=== PATIENT | female | born 1960 | race Caucasian/White ===

== ENCOUNTER 2020-09-08 13:05 | Outpatient (REF) | payer OTHER, SELFPAY | END 2020-09-08 13:06 | disposition home or self-care (01) | LOC: HO.LAB 13:05 | PROVIDERS: PCP Internal Medicine; Visit Provider Internal Medicine | DX: Z20.822 Contact with and (suspected) exposure to COVID-19 (principal) | CPT/HCPCS: 36415; C9803; U0003 ==

== ENCOUNTER 2021-01-27 09:18 | Outpatient (REF) | payer OTHER, SELFPAY ==
--- NOTE | ~2021-01-27 | MM_ITS ---
EXAMINATION: MM SCREENING DIGITAL BREAST TOMOSYNTHESIS, BILATERAL CLINICAL INFORMATION: Screening. Asymptomatic. The lifetime risk of breast cancer based on the Tyrer-Cuzick Model is 7%. COMPARISON: Mammography: 02/24/2017, 02/16/2017, 05/08/2014, targeted left breast ultrasound 02/24/2017. TECHNIQUE: Digital breast tomosynthesis is performed in both the craniocaudal and mediolateral oblique views along with computer-aided detection (CAD). Synthesized 2D images are generated from the tomosynthesis. FINDINGS: The breasts are heterogeneously dense, which may obscure small masses (ACR BI-RADS breast composition Category c). There is fibronodular and mild fibrocystic parenchymal pattern. Scattered small smooth benign-appearing nodularity is present, waxing and waning from prior exam. The dominant cyst previously noted 11:00 left breast is decreased. There is no significant mass or architectural abnormality. There are scattered punctate calcifications in each breast. The axilla and skin contours are unremarkable. MM/MM tomosynthesis screening BI IMPRESSION: No significant changes from prior exams. ASSESSMENT: BI-RADS 2: Benign RECOMMENDATION: Routine annual mammography screening. This patient's information was entered into a reminder system with a target due date for their next mammogram.
--- NOTE | ~2021-01-27 | MM_ITS ---
EXAMINATION: BONE DENSITOMETRY CLINICAL INDICATION: Menopausal. COMPARISON: None (current study represents initial baseline exam). TECHNIQUE: Using a [employer] DXA System (software version: 13.1) manufactured by [employer], dual-energy x-ray absorptiometry was performed of the lumbar spine and left hip. The images are of good technical quality. Summary results are attached. FINDINGS: AP SPINE L1-L4: BMD 0.916 g/cm2, Z-score -1.5, T-score -2.2, osteopenia. LEFT FEMUR, NECK: BMD 0.754 g/cm2, Z-score -1.1, T-score -2.0, osteopenia. LEFT FEMUR, TOTAL: BMD 0.862 g/cm2, Z-score -0.6, T-score -1.2, osteopenia. IDENTIFIED RISK FACTORS: Menopause, hysterectomy. HISTORY OF FRACTURE: None listed. MEDICATIONS: None listed. MM/XR DEXA axial skeleton IMPRESSION: 1. DIAGNOSIS: Osteopenia based on the lowest T-score value of -2.2 in the lumbar spine applying World Health Organization criteria. 2. 10-YEAR FRACTURE RISK PREDICTION, FRAX: Major osteoporotic fracture (clinical spine, forearm, hip or shoulder) 4.7%. Hip fracture 0.6%. 3. Treatment Recommendations: NOF guidelines recommend consideration for treatment in postmenopausal women and men age 50 and older presenting with the following: -A hip or vertebral (clinical or morphometric) fracture. -T-score less than or equal to -2.5 at the femoral neck or spine after appropriate evaluation to exclude secondary causes. -Low bone mass at the hip or spine and a 10-year fracture probability by FRAX of greater than or equal to 3% for hip fracture or greater than or equal to 20% for major osteoporotic fracture based on the [place] adapted WHO algorithm. 4. Other Recommendations: All treatment decisions require clinical judgment and consideration of individual patient factors, including patient preferences, comorbidities, previous drug use, risk factors not captured in the FRAX model (e.g. frailty, falls, vitamin D deficiency, increased bone turnover, interval significant decline in bone density) and possible under or overestimation of fracture risk by FRAX. Additional medical evaluation for secondary cause of low bone mineral density may be appropriate. FUTURE SCAN RECOMMENDATION: People with diagnosed cases of osteoporosis or at high risk for fracture should have regular bone mineral density tests. For patients eligible for Medicare, routine testing is allowed once every 2 years. The testing frequency can be increased to one year for patients who have rapidly progressing disease, those who are receiving or discontinuing medical therapy to restore bone mass, or have additional risk factors.
== END 2021-01-27 09:19 | disposition home or self-care (01) ==
LOC: HO.MAMMO 09:18
PROVIDERS: Visit Provider Internal Medicine
DX: Z12.31 Encounter for screening mammogram for malignant neoplasm of breast (principal); Z13.820 Encounter for screening for osteoporosis; M85.80 Other specified disorders of bone density and structure, unspecified site; Z78.0 Asymptomatic menopausal state; Z98.890 Other specified postprocedural states
CPT/HCPCS: 77063; 77067; 77080

== ENCOUNTER 2021-02-03 07:36 | Day surgery (SDC) | payer OTHER, SELFPAY ==
[2021-01-27 12:08] VITALS: BMI 32.8
--- NOTE | 2021-02-01 15:26 | HO.ANESPROP2 ---
HPI - Anesthesia Eval Consult details Narrative: 60yo F for Upper End[facility] Past Medical History Medical History Anxiety Back pain Diabetes GERD (gastroesophageal reflux disease) Hypothyroidism Surgical History Surgical History Hx of colonoscopy Hx of hysterectomy Social History Social History (Updated 01/27/21 @ 12:15 by Tiffanie Souza) Alcohol intake: never Patient Tobacco Use Status: Never used Tobacco Are you DNR?: No Advance Directives: No Advance Directives Information Provided: No Advance Directives on File: No Meds Allergies Allergy/AdvReac Type Severity Reaction Status Date / Time cimetidine [Tagamet] Allergy Intermediate Swelling,li Verified 02/03/21 07:56 ps Home Medications Medication Instructions Recorded Confirmed Last Taken Type amitriptyline 1 tab PO BEDTIME 01/27/21 01/27/21 Unknown History bisacodyl PO 01/27/21 01/27/21 Unknown History levothyroxine 1 tab PO QAM 01/27/21 01/27/21 02/03/21 06:15 History metformin 1 tab PO BID 01/27/21 01/27/21 Unknown History omeprazole 1 cap PO DAILY 01/27/21 01/27/21 Unknown History polyethylene glycol 3350 PO DIRECTED 01/27/21 Unknown History Exam Exam Date and Time: February 01, 2021 1526 Height,Weight and Vital Signs: Height 5 ft Weight 76.204 kg Assessment and Plan Assessment Anesthesia Assessment: Chart Reviewed
[2021-02-03 08:14] VITALS: BP 146/77; PULSE 99; RESP 20; TEMP 36.1; O2SAT 99
[2021-02-03 08:16] LABS: Glucose, Whole Blood 145 mg/dL (60-115)
[2021-02-03] MEDS: Lactated Ringers 1,000 ML 100 ML IVCONT (08:30)
--- NOTE | 2021-02-03 10:10 | P.BOP_ITS ---
Brief Operative Note Date of Service: 02/03/21 Pre-op diagnosis: GERD, Screening, Family history of colon cancer Post-op diagnosis: other (Hiatal hernia, Colon polyps) Procedure: EGD with biopsies, and Colonoscopy to the cecum with snare polyp ectomy and biopsy/removal of polyp Surgeon: Francisco Howard Anesthesia: MAC Was an Control System Computer Scientist used for this Procedure?: No Estimated blood loss (mL): 4.0 Pathology: other (A. EG Junction at 35cm B. Transverse colon polyps C. Ascending colon polyp D. Polyp at 40cm E. Polyp at 20cm) Condition: stable Disposition: PACU
[2021-02-03 10:12] VITALS: BP 119/78; PULSE 92; RESP 16; TEMP 36.7; O2SAT 99
[2021-02-03 10:27] VITALS: BP 130/77; PULSE 88; RESP 17; TEMP 36.7; O2SAT 100
--- NOTE | 2021-02-03 15:58 | HO.POSTANES ---
Post Anesthesia Evaluation Post Anesthesia Evaluation Vital Signs: Vital Signs Temp Pulse Resp BP Pulse Ox 02/03/21 10:27 98.0 F 88 17 130/77 100 02/03/21 10:12 98.0 F 92 16 119/78 99 02/03/21 08:14 96.9 F 99 20 146/77 H 99 Anesthesia: Monitored Mental Status: Awake Pain Control: Satisfactory Nausea/Vomiting: None Hydration: Adequate Anesthesia-Related Issues: No Anes. Related Issues
--- NOTE | 2021-02-03 21:27 | OP_ITS ---
SURGEON: Francisco Howard MD INDICATIONS: The patient presents for evaluation of chronic gastroesophageal reflux, colorectal cancer screening, and family history of colon cancer. Full consent was obtained from her for this, including risks of bleeding and perforation. PREOPERATIVE DIAGNOSIS: Gastroesophageal reflux, colorectal cancer screening, family history of colon cancer. POSTOPERATIVE DIAGNOSIS: Gastroesophageal reflux, colorectal cancer screening, family history of colon cancer, hiatal hernia, colon polyps, diverticulosis and internal hemorrhoids. PROCEDURE PERFORMED: ESTIMATED BLOOD LOSS: COMPLICATIONS: ANESTHESIA: Monitored anesthesia care. ASSISTANTS: SPECIMENS: DESCRIPTION OF PROCEDURE: The patient was placed in the left lateral decubitus position. The Olympus video gastroscope was passed in the posterior oropharynx and upper esophagus under direct vision. The scope was passed slowly into the distal esophagus. The gastroesophageal junction appeared at 35 cm. There was some minimal irregularity consistent with reflux, but no definitive evidence of Baron's esophagus and no esophagitis. There was a small hiatal hernia. The scope was advanced to the pylorus and the duodenum was cannulated to the descending portion. The duodenum including the bulb appeared normal without mass or ulceration. Scope was withdrawn back to the stomach. The gastric antrum and body appeared normal with good peristalsis. The scope was retroflexed visualizing the proximal stomach carefully, which appeared normal, without any sign of mass or ulceration. The scope was straightened and withdrawn back to the esophagus. Biopsies were obtained at the EG junction at 35 cm. Proximal to that the esophageal mucosa appeared normal. Scope was withdrawn from the patient. She was turned around for the colonoscopy. The digital rectal exam revealed no abnormalities. The Olympus video pediatric colonoscope was entered into the rectum and advanced easily to the cecum. Once in the cecum, I did identify normal-appearing cecal pouch with appendiceal orifice and a normal-appearing ileocecal valve. There was transillumination of light deep in the right lower quadrant. The entire cecum and ileocecal valve appeared normal. The scope was then slowly withdrawn assessing all mucosal surfaces carefully. Preparation was excellent. In the ascending colon, was an approximately 10 mm polyp, which was snared and recovered by suction. The polypectomy site appeared clean, without any sign of residual polyp nor bleeding. In the transverse colon, were 2 polyps, one of which was 10 mm in diameter and the other was 12 mm in diameter. These were both snared and recovered by suction. Both polypectomy sites appeared clean, without any sign of residual polyp nor bleeding. At 40 cm, was an approximately 3 or 4 mm polyp, which was biopsied and completely removed with cold biopsy forceps. At 20 cm, was an approximately 12 mm polyp, which was snared and removed in piecemeal fashion and recovered for pathology by suction. The polypectomy site appeared clean, without any sign of residual polyp nor bleeding. I did not visualize any other polyps, colitis, or angiodysplasia. There was a mild amount of sigmoid diverticulosis. In the rectum, scope was retroflexed visualizing internal hemorrhoids, but no other pathology. The rectal mucosa appeared normal. The scope was straightened and withdrawn from the patient. She tolerated both procedures well and returned to the recovery area in stable condition. IMPRESSION: 1. Colon polyps, status post snare polypectomy, and biopsy removal. 2. Small hiatal hernia, gastroesophageal reflux. 3. Diverticulosis. 4. Internal hemorrhoids. PLAN: The results of the pathology will be checked. If the upper endoscopy biopsies do not show Baron's esophagus, then I do not think she will need further upper endoscopies and she should simply continue her PPI for symptomatic relief of reflux. Given her significant family history of a mother and sister with colon cancer and today's findings in the colonoscopy with multiple polyps, I would recommend a repeat colonoscopy in 2-3 years for further screening and surveillance. She was advised not to use any aspirin or NSAIDs for 1 week. If things are otherwise stable, she will see me on a p.r.n. basis. PROCEDURES PERFORMED: Esophagogastroduodenoscopy with biopsies, and colonoscopy to the cecum with snare polypectomy, and biopsy and removal of polyp. MD MICAELA Anthony/LUIS MIGUEL / [phone]
== END 2021-02-03 11:07 | disposition home or self-care (01) ==
PROVIDERS: PCP Internal Medicine; Visit Provider Internal Medicine
PROC: (CPT 45385; principal; 2021-02-03 08:30)
DX: Z12.11 Encounter for screening for malignant neoplasm of colon (principal); Z80.0 Family history of malignant neoplasm of digestive organs; D12.2 Benign neoplasm of ascending colon; D12.3 Benign neoplasm of transverse colon; K63.5 Polyp of colon; K57.30 Diverticulosis of large intestine without perforation or abscess without bleeding; K64.8 Other hemorrhoids; K21.9 Gastro-esophageal reflux disease without esophagitis; K44.9 Diaphragmatic hernia without obstruction or gangrene; J45.909 Unspecified asthma, uncomplicated; E11.9 Type 2 diabetes mellitus without complications; Z79.84 Long term (current) use of oral hypoglycemic drugs; Z79.899 Other long term (current) drug therapy; Z79.51 Long term (current) use of inhaled steroids
CPT/HCPCS: 45385; 45380; 43239; 82947; 88305

== ENCOUNTER 2021-12-13 09:23 | Outpatient (REF) | payer OTHER, SELFPAY ==
[2021-12-13 09:51] LABS: MANUAL DIFF FLAG NO
[2021-12-13 10:21] LABS: Basophils Percent Auto 0.6 % (0-2); Eosinophils Absolute Auto 0.2 X10*3/uL (0.0-0.4); Eosinophils Percent Auto 3.1 % (0-4); Hematocrit 37.7 % (37.0-47.0); Hemoglobin 12.1 g/dl (12.0-16.0); Imm Gran Abs Auto 0.02 X10*3/uL (0.00-0.03); Imm Gran Pct Auto 0.3 % (0.0-0.4); Lymphocytes Absolute Auto 2.4 X10*3/uL (1.2-4.9); Lymphocytes Percent Auto 39.1 % (20-40); Mean Corpuscular HGB Conc 32.1 g/dl (31.0-35.0); Mean Corpuscular Hemoglobin 28.7 pg (27.0-33.0); Mean Corpuscular Volume 89.5 fL (80.0-98.0); Mean Platelet Volume 11.1 fL (9.4-12.3); Monocytes Absolute Auto 0.6 X10*3/uL (0.1-1.2); Monocytes Percent Auto 9.2 % (2-11); Neutrophils Percent Auto 47.7 % (45-73); Platelet Count 260 X10*3/uL (160-400); Red Blood Count 4.21 X10*6/uL (4.20-5.50); White Blood Count 6.2 X10*3/uL (4.8-10.8)
[2021-12-13 10:41] LABS: Estimated Average Glucose 140 mg/dL; Hemoglobin A1c % 6.5 %
[2021-12-13 10:55] LABS: Alanine Aminotransferase 36 U/L (0-31); Albumin Level 4.2 g/dL (3.5-5.0); Alkaline Phosphatase 118 U/L (39-117); Anion Gap 14 (12-20); Aspartate Amino Transferase 51 U/L (5-31); Bilirubin Total 0.4 mg/dL (0.0-1.0); Blood Urea Nitrogen 16 mg/dL (9-16); Calcium 9.4 mg/dL (8.4-10.2); Carbon Dioxide 23 mmol/L (22-29); Chloride 106 mmol/L (96-108); Cholesterol 212 mg/dL; Estimated Glomerular Filt Rate > 60; Glucose Fasting 121 mg/dL (60-99); HDL Cholesterol 45 mg/dL; LDL Cholesterol Calculated 141 mg/dl; Potassium 5.1 mmol/L (3.3-5.1); Sodium 138 mmol/L (135-145); Total Protein 7.8 g/dL (6.5-8.0); Triglycerides 130 mg/dL
[2021-12-13 11:04] LABS: Free T4 (Free Thyroxine) 0.79 ng/dL (0.71-1.85); Thyroid Stimulating Hormone 13.46 uIU/mL (0.32-4.0); Vitamin D 25-OH Total 13.6 ng/mL (>30)
[2021-12-13 11:09] LABS: Creatinine Urine 138.78 mg/dL; Microalbum/Creatinine Ratio Ur 16.5 ug/mg cr
== END 2021-12-13 09:24 | disposition home or self-care (01) ==
LOC: HO.LAB 09:23
PROVIDERS: PCP Internal Medicine; Visit Provider Internal Medicine
DX: E11.9 Type 2 diabetes mellitus without complications (principal); E03.9 Hypothyroidism, unspecified; K21.9 Gastro-esophageal reflux disease without esophagitis; J45.909 Unspecified asthma, uncomplicated; E55.9 Vitamin D deficiency, unspecified
CPT/HCPCS: 36415; 80053; 80061; 82043; 82306; 83036; 84439; 84443; 85025

== ENCOUNTER 2022-03-18 08:31 | Outpatient (REF) | payer OTHER, SELFPAY ==
[2022-03-18 10:12] LABS: Cholesterol 242 mg/dL; HDL Cholesterol 49 mg/dL; LDL Cholesterol Calculated 162 mg/dl; Triglycerides 155 mg/dL
== END 2022-03-18 08:32 | disposition home or self-care (01) ==
LOC: HO.LAB 08:31
PROVIDERS: PCP Internal Medicine; Visit Provider Internal Medicine
DX: E78.00 Pure hypercholesterolemia, unspecified (principal)
CPT/HCPCS: 36415; 80061

== ENCOUNTER 2022-11-11 13:31 | Outpatient (REF) | payer OTHER, SELFPAY ==
[2022-11-11 13:43] LABS: MANUAL DIFF FLAG NO
[2022-11-11 14:02] LABS: Basophils Percent Auto 0.4 % (0-2); Eosinophils Absolute Auto 0.2 X10*3/uL (0.0-0.4); Eosinophils Percent Auto 2.6 % (0-4); Hematocrit 38.4 % (37.0-47.0); Hemoglobin 12.6 g/dl (12.0-16.0); Imm Gran Abs Auto 0.02 X10*3/uL (0.00-0.03); Imm Gran Pct Auto 0.3 % (0.0-0.4); Lymphocytes Absolute Auto 2.7 X10*3/uL (1.2-4.9); Lymphocytes Percent Auto 39.7 % (20-40); Mean Corpuscular HGB Conc 32.8 g/dl (31.0-35.0); Mean Corpuscular Hemoglobin 29.2 pg (27.0-33.0); Mean Corpuscular Volume 89.1 fL (80.0-98.0); Mean Platelet Volume 11.5 fL (9.4-12.3); Monocytes Absolute Auto 0.5 X10*3/uL (0.1-1.2); Monocytes Percent Auto 7.2 % (2-11); Neutrophils Absolute Auto 3.4 x10*3/uL (2.0-8.3); Neutrophils Percent Auto 49.8 % (45-73); Platelet Count 240 X10*3/uL (160-400); Red Blood Count 4.31 X10*6/uL (4.20-5.50); Red Cell Distribution Width 12.1 % (11.0-16.0); White Blood Count 6.9 X10*3/uL (4.8-10.8)
[2022-11-11 14:12] LABS: Estimated Average Glucose 249 mg/dL; Hemoglobin A1c % 10.3 %
[2022-11-11 14:28] LABS: Creatinine Urine 140.78 mg/dL; Microalbum/Creatinine Ratio Ur 38.3 ug/mg cr
[2022-11-11 14:34] LABS: Alanine Aminotransferase 64 U/L (0-31); Albumin Level 4.5 g/dL (3.5-5.0); Alkaline Phosphatase 123 U/L (39-117); Anion Gap 13 (12-20); Aspartate Amino Transferase 85 U/L (5-31); Bilirubin Total 0.4 mg/dL (0.0-1.0); Blood Urea Nitrogen 15 mg/dL (9-16); C Reactive Protein 2.39 mg/dL (< or = 0.50); Calcium 9.7 mg/dL (8.4-10.2); Carbon Dioxide 28 mmol/L (22-29); Chloride 101 mmol/L (96-108); Estimated Glomerular Filt Rate > 60; Glucose Random 247 mg/dL (60-115); Lipase 18 U/L (8-78); Potassium 4.8 mmol/L (3.3-5.1); Sodium 137 mmol/L (135-145); Total Protein 7.9 g/dL (6.5-8.0)
[2022-11-11 14:51] LABS: Free T4 (Free Thyroxine) 1.15 ng/dL (0.71-1.85); Thyroid Stimulating Hormone 4.57 uIU/mL (0.32-4.0); Vitamin D 25-OH Total 14.1 ng/mL (>30)
== END 2022-11-11 13:32 | disposition home or self-care (01) ==
LOC: HO.LAB 13:31
PROVIDERS: PCP Internal Medicine; Visit Provider Internal Medicine
DX: E11.9 Type 2 diabetes mellitus without complications (principal); E03.9 Hypothyroidism, unspecified; R53.83 Other fatigue
CPT/HCPCS: 36415; 80053; 82043; 82306; 83036; 83690; 84439; 84443; 85025; 86140

== ENCOUNTER 2022-12-02 10:25 | Emergency (ER) | payer OTHER, SELFPAY ==
--- NOTE | ~2022-12-02 | XR_ITS ---
EXAMINATION: XR CHEST CLINICAL INFORMATION: Cough COMPARISON: 10/13/2018 TECHNIQUE: Frontal view of the chest was obtained. FINDINGS: The lungs are well expanded. There is no focal consolidation, edema, or effusion. No pneumothorax. The cardiomediastinal silhouette is within normal limits. No acute osseous abnormality. XR/XR chest 1V IMPRESSION: Clear lungs.
[2022-12-02 10:27] VITALS: BP 139/57; PULSE 95; RESP 18; TEMP 36.9; O2SAT 99; BMI 30.4
[2022-12-02 11:08] LABS: IDNOW Serial# 08D9AD1C; Influenza A Negative (Negative)
[2022-12-02 11:09] LABS: COVID-19 Test Negative (Negative); IDNOW Serial# BCCEAD1C; Influenza B2 Negative (Negative)
--- NOTE | 2022-12-02 12:10 | ED.URI ---
HPI - URI/Sore Throat General Chief Complaint: Upper Respiratory Symptoms Stated Complaint: Cough Time Seen by Provider: 12/02/22 10:33 History of Present Illness HPI Narrative: Patient complains of worsening cough over the past 10 days, it is productive of sputum, it is also associated with increased use of her albuterol inhaler for her asthma, she is using the inhaler twice to 3 times a day with good relief but wheezing returns Denies fever or chills, no chest pain no abdominal pain no nausea vomiting or diarrhea no calf pain or swelling Related Data Home Medications Medication Instructions Recorded Confirmed amitriptyline 100 mg tablet 1 tab PO BEDTIME 01/27/21 01/27/21 bisacodyl 5 mg tablet,delayed PO 01/27/21 01/27/21 release levothyroxine 88 mcg tablet 1 tab PO QAM 01/27/21 01/27/21 metformin 500 mg tablet 1 tab PO BID 01/27/21 01/27/21 omeprazole 20 mg capsule,delayed 1 cap PO DAILY 01/27/21 01/27/21 release polyethylene glycol 3350 17 PO DIRECTED 01/27/21 gram/dose oral powder Previous Rx's Medication Instructions Recorded benzonatate 200 mg capsule 200 mg PO BID PRN cough #14 caps 12/02/22 doxycycline hyclate 100 mg capsule 100 mg PO BID 7 days #14 caps 12/02/22 prednisone 20 mg tablet 60 mg PO DAILY 5 days #15 tabs 12/02/22 Allergies Allergy/AdvReac Type Severity Reaction Status Date / Time cimetidine [Tagamet] Allergy Intermediate Swelling,li Verified 02/03/21 07:56 ps PMFSH Past Medical History Source: nursing notes reviewed Medical History (Updated 12/02/22 @ 12:14 by PREM Ray) Anxiety Back pain Diabetes GERD (gastroesophageal reflux disease) Hypothyroidism Surgical History Hx of colonoscopy Hx of hysterectomy Social History Social History (Updated 01/27/21 @ 12:15 by Tiffanie Souza RN) Alcohol intake: never Patient Tobacco Use Status: Never used Tobacco Advance Directives: No Advance Directives Information Provided: Yes Physical Exam Vital Signs: Vital Signs: Last Vital Signs Temp 98.4 F 12/02/22 10:27 Pulse 95 04/21/23 10:27 Resp 18 12/02/22 10:27 BP 139/57 L 12/02/22 10:27 Pulse Ox 99 12/02/22 10:27 O2 Del Method Room Air 12/02/22 10:27 BMI result Body Mass Index 30.4 General appearance no distress The eyes no redness or discharge The sinuses nontender The pharynx is clear with no redness swelling or exudate Neck is supple Chest clear to auscultation bilateral no adventitious sounds No wheezing no respiratory distress Heart no murmur Abdomen soft nontender extremities no edema no calf tenderness or swelling Skin no rash Course Course Course Narrative: Well-appearing patient with worsening cough, asthma controlled with home inhaler but frequent use of the inhaler over the last 10 days, chest x-ray negative, COVID testing negative, vital signs normal, no distress Patient is treated for bronchitis with doxycycline and is well-appearing and discharged Medical Decision Making Lab Data MDM Lab Attestation statement: I reviewed the patient's lab results. Labs: Lab Results 12/02/22 12/02/22 Range/Units 10:35 10:35 COVID-19 ([facility]) Negative (Negative) COVID-19 Clin Com See Note Influenza Type A (ANY) Negative (Negative) Influenza Type B (ANY) Negative (Negative) Influenza A & B Note See Note Discharge Plan Discharge Clinical Impression: Bronchitis Patient Disposition: Home, Self-Care Additional Instructions: Chest x-ray was normal COVID testing was negative Your vital signs were okay and exam was okay we are treating for bronchitis with antibiotic doxycycline We are treating asthma with prednisone which can raise your sugar so check sugar regularly Return any time for difficulty breathing any worse condition or any concerns Prescriptions: New doxycycline hyclate 100 mg capsule 100 mg PO BID 7 Days Qty: 14 0RF benzonatate 200 mg capsule 200 mg PO BID PRN (Reason: cough) Qty: 14 0RF prednisone 20 mg tablet 60 mg PO DAILY 5 Days Qty: 15 0RF No Action metformin 500 mg tablet 1 tab PO BID levothyroxine 88 mcg tablet 1 tab PO QAM omeprazole 20 mg capsule,delayed release(DR/EC) 1 cap PO DAILY bisacodyl 5 mg tablet,delayed release (DR/EC) PO polyethylene glycol 3350 17 gram/dose powder PO DIRECTED amitriptyline 100 mg tablet 1 tab PO BEDTIME
== END 2022-12-02 12:22 | disposition home or self-care (01) ==
PROVIDERS: Emergency Provider Emergency Medicine Emergency Medical Services; PCP Internal Medicine
DX: J40 Bronchitis, not specified as acute or chronic (principal); R05.9 Cough, unspecified; Z20.822 Contact with and (suspected) exposure to COVID-19; Z20.828 Contact with and (suspected) exposure to other viral communicable diseases
CPT/HCPCS: 71045; 87502; 87635; 99282; 99283

== ENCOUNTER 2022-12-12 11:21 | Outpatient (REF) | payer OTHER, SELFPAY ==
[2022-12-12 14:12] LABS: Alanine Aminotransferase 54 U/L (0-31); Albumin Level 4.1 g/dL (3.5-5.0); Alkaline Phosphatase 115 U/L (39-117); Anion Gap 14 (12-20); Aspartate Amino Transferase 71 U/L (5-31); Bilirubin Total 0.6 mg/dL (0.0-1.0); Blood Urea Nitrogen 14 mg/dL (9-16); Calcium 9.1 mg/dL (8.4-10.2); Carbon Dioxide 24 mmol/L (22-29); Chloride 101 mmol/L (96-108); Estimated Glomerular Filt Rate > 60; Free T4 (Free Thyroxine) 0.99 ng/dL (0.71-1.85); Glucose Random 346 mg/dL (60-115); Potassium 4.3 mmol/L (3.3-5.1); Sodium 135 mmol/L (135-145); Thyroid Stimulating Hormone 11.08 uIU/mL (0.32-4.0); Total Protein 7.1 g/dL (6.5-8.0)
[2022-12-12 14:39] LABS: Estimated Average Glucose 258 mg/dL; Hemoglobin A1c % 10.6 %
== END 2022-12-12 11:22 | disposition home or self-care (01) ==
LOC: HO.10HDL 11:21
PROVIDERS: Visit Provider Internal Medicine
DX: E11.9 Type 2 diabetes mellitus without complications (principal); E03.9 Hypothyroidism, unspecified; K21.9 Gastro-esophageal reflux disease without esophagitis; R79.89 Other specified abnormal findings of blood chemistry; J45.909 Unspecified asthma, uncomplicated
CPT/HCPCS: 36415; 80053; 83036; 84439; 84443

== ENCOUNTER 2023-01-26 09:26 | Outpatient (REF) | payer OTHER, SELFPAY ==
[2023-01-26 11:32] LABS: Estimated Average Glucose 177 mg/dL; Hemoglobin A1c % 7.8 %
[2023-01-26 11:35] LABS: Alanine Aminotransferase 53 U/L (0-31); Albumin Level 4.3 g/dL (3.5-5.0); Alkaline Phosphatase 99 U/L (39-117); Anion Gap 15 (12-20); Aspartate Amino Transferase 68 U/L (5-31); Bilirubin Total 0.5 mg/dL (0.0-1.0); Blood Urea Nitrogen 11 mg/dL (9-16); Calcium 9.4 mg/dL (8.4-10.2); Carbon Dioxide 25 mmol/L (22-29); Chloride 108 mmol/L (96-108); Estimated Glomerular Filt Rate > 60; Glucose Random 110 mg/dL (60-115); Potassium 4.6 mmol/L (3.3-5.1); Sodium 143 mmol/L (135-145); Total Protein 7.8 g/dL (6.5-8.0)
[2023-01-26 11:40] LABS: Free T4 (Free Thyroxine) 0.93 ng/dL (0.71-1.85); Thyroid Stimulating Hormone 2.38 uIU/mL (0.32-4.0)
== END 2023-01-26 09:27 | disposition home or self-care (01) ==
LOC: HO.10HDL 09:26
PROVIDERS: Visit Provider Internal Medicine
DX: E11.9 Type 2 diabetes mellitus without complications (principal); E03.9 Hypothyroidism, unspecified; R74.01 Elevation of levels of liver transaminase levels
CPT/HCPCS: 36415; 80053; 83036; 84439; 84443

== ENCOUNTER 2023-04-12 12:51 | Outpatient (REF) | payer OTHER, SELFPAY ==
[2023-04-12 14:06] LABS: Estimated Average Glucose 137 mg/dL; Hemoglobin A1C 150.4184 umol/L; Hemoglobin A1c % 6.4 % (<6.0)
[2023-04-12 14:42] LABS: Alanine Aminotransferase 41 U/L (0-31); Albumin Level 4.3 g/dL (3.5-5.0); Alkaline Phosphatase 98 U/L (39-117); Anion Gap 13 (12-20); Aspartate Amino Transferase 71 U/L (5-31); Bilirubin Total 0.3 mg/dL (0.0-1.0); Blood Urea Nitrogen 12 mg/dL (9-16); Calcium 9.2 mg/dL (8.4-10.2); Carbon Dioxide 26 mmol/L (22-29); Chloride 106 mmol/L (96-108); Estimated Glomerular Filt Rate > 60; Glucose Random 105 mg/dL (60-115); Potassium 4.5 mmol/L (3.3-5.1); Sodium 140 mmol/L (135-145); Total Protein 7.9 g/dL (6.5-8.0)
[2023-04-12 15:00] LABS: Free T4 (Free Thyroxine) 0.73 ng/dL (0.71-1.85)
== END 2023-04-12 12:52 | disposition home or self-care (01) ==
LOC: HO.LAB 12:51
PROVIDERS: PCP Internal Medicine; Visit Provider Internal Medicine
DX: I10 Essential (primary) hypertension (principal); E11.9 Type 2 diabetes mellitus without complications; E03.9 Hypothyroidism, unspecified
CPT/HCPCS: 36415; 80053; 83036; 84439; 84443

== ENCOUNTER → 2023-04-27 07:43 | Outpatient (REF) | payer OTHER, SELFPAY ==
--- NOTE | 2023-04-27 07:46 | CA_ITS ---
Acquisition Time: 2023-04-27 08:01:34 Total Exercise Time: 00:05:31 Test Indications: CHEST PAIN Medications: LEVOTHYROXINE METFORMIN OMEPRAZOLE AMITRIPTYLINE Protocol: ADI Max HR: 139 BPM 86% of Pred: 160 BPM Max BP: 132/088 mmHG Max Work Load: 7.0 METS PT EXERCISED ON STD ADI PROTOCOL FOR 530 INTO STAGE 2. MAX HR 139-87%MAX. END POINT WAS FATIGUE. NO CP SOME SOB. NO EKG CHANGES. CLINICALLY AND ELEC NEG. Referred By: Kyle Jackson Overread By: SENDY JACKSON MD
== END ==
LOC: HO.CARD 07:43
PROVIDERS: PCP Internal Medicine; Visit Provider Internal Medicine
DX: R07.9 Chest pain, unspecified (principal)
CPT/HCPCS: 93017

== ENCOUNTER 2023-06-13 09:20 | Outpatient (REF) | payer OTHER, SELFPAY ==
[2023-06-13 10:52] LABS: Free T4 (Free Thyroxine) 0.81 ng/dL (0.71-1.85); Thyroid Stimulating Hormone 14.97 uIU/mL (0.32-4.0)
== END 2023-06-13 09:21 | disposition home or self-care (01) ==
LOC: HO.LAB 09:20
PROVIDERS: PCP Internal Medicine; Visit Provider Internal Medicine
DX: E03.9 Hypothyroidism, unspecified (principal)
CPT/HCPCS: 36415; 84439; 84443

== ENCOUNTER 2023-09-25 09:31 | Outpatient (REF) | payer OTHER, SELFPAY ==
[2023-09-25 11:56] LABS: Free T4 (Free Thyroxine) 0.89 ng/dL (0.71-1.85); Thyroid Stimulating Hormone 15.67 uIU/mL (0.32-4.0)
== END 2023-09-25 09:32 | disposition home or self-care (01) ==
LOC: HO.LAB 09:31
PROVIDERS: PCP Internal Medicine; Visit Provider Internal Medicine
DX: E03.9 Hypothyroidism, unspecified (principal)
CPT/HCPCS: 36415; 84439; 84443

== ENCOUNTER 2023-12-01 11:20 | Outpatient (REF) | payer OTHER, SELFPAY ==
[2023-12-01 11:31] LABS: MANUAL DIFF FLAG NO
[2023-12-01 11:56] LABS: Basophils Percent Auto 0.3 % (0-2); Eosinophils Absolute Auto 0.2 X10*3/uL (0.0-0.4); Eosinophils Percent Auto 4.1 % (0-4); Hematocrit 37.5 % (37.0-47.0); Hemoglobin 12.4 g/dl (12.0-16.0); Imm Gran Abs Auto 0.02 X10*3/uL (0.00-0.03); Imm Gran Pct Auto 0.3 % (0.0-0.4); Lymphocytes Absolute Auto 2.6 X10*3/uL (1.2-4.9); Lymphocytes Percent Auto 44.5 % (20-40); Mean Corpuscular HGB Conc 33.1 g/dl (31.0-35.0); Mean Corpuscular Hemoglobin 29.4 pg (27.0-33.0); Mean Corpuscular Volume 88.9 fL (80.0-98.0); Monocytes Absolute Auto 0.6 X10*3/uL (0.1-1.2); Monocytes Percent Auto 9.9 % (2-11); Neutrophils Absolute Auto 2.4 x10*3/uL (2.0-8.3); Neutrophils Percent Auto 40.9 % (45-73); Platelet Count 249 X10*3/uL (160-400); Red Blood Count 4.22 X10*6/uL (4.20-5.50); Red Cell Distribution Width 12.9 % (11.0-16.0); White Blood Count 5.9 X10*3/uL (4.8-10.8)
[2023-12-01 12:49] LABS: Appearance Urine Clear; Color Urine Dark Yellow; Glucose Urine UA Negative (Negative); Leukocyte Esterase Urine Moderate (2+) (Negative); Nitrite Urine Negative (Negative); PH 5.5 (5.0-9.0); Specific Gravity - Urine 1.025 (1.005-1.025); UMIC TRIGGER UACC YES; Urine Blood Negative (Negative); Urine Ketones Trace mg/dL (Negative); Urine Protein Trace mg/dL (Neg-Trace)
[2023-12-01 12:52] LABS: Alanine Aminotransferase 28 U/L (0-31); Albumin Level 4.3 g/dL (3.5-5.0); Alkaline Phosphatase 111 U/L (39-117); Anion Gap 12 (12-20); Aspartate Amino Transferase 39 U/L (5-31); Bilirubin Total 0.3 mg/dL (0.0-1.0); Blood Urea Nitrogen 13 mg/dL (9-16); C Reactive Protein 1.91 mg/dL (< or = 0.50); Calcium 9.5 mg/dL (8.4-10.2); Carbon Dioxide 27 mmol/L (22-29); Chloride 106 mmol/L (96-108); Estimated Glomerular Filt Rate > 60; Glucose Random 147 mg/dL (60-115); Potassium 4.5 mmol/L (3.3-5.1); Sodium 140 mmol/L (135-145)
[2023-12-01 13:06] LABS: Bacteria Urine None Seen (None Seen); Hyaline Casts Urine 0-2 /LPF (0-2); RBC Urine 0-2 /HPF (0-2); UACC Culture Trigger YES
[2023-12-01 15:28] LABS: Estimated Average Glucose 166 mg/dL; Hemoglobin A1c % 7.4 % (<6.0)
[2023-12-01 16:16] LABS: Creatinine Urine 198.18 mg/dL; Microalbum/Creatinine Ratio Ur 20.1 ug/mg cr (<30)
== END 2023-12-01 11:21 | disposition home or self-care (01) ==
LOC: HO.LAB 11:20
PROVIDERS: PCP Internal Medicine; Visit Provider Internal Medicine
DX: R10.9 Unspecified abdominal pain (principal); E11.9 Type 2 diabetes mellitus without complications; R60.0 Localized edema
CPT/HCPCS: 36415; 80053; 81001; 82043; 82550; 82570; 83036; 85025; 86140; 87086

== ENCOUNTER 2024-01-09 10:44 | Emergency (ER) | payer OTHER, SELFPAY ==
[2024-01-09 11:35] VITALS: BP 149/75; PULSE 89; RESP 18; TEMP 36.3; O2SAT 98; BMI 33.3
--- NOTE | 2024-01-09 11:37 | ED_ITS ---
HPI - General Adult General Chief complaint: General Medical Stated complaint: rash on leg, swollen Time Seen by Provider: 01/09/24 14:04 Source: patient Limitations: no limitations History of Present Illness ED Provider: Pancho Garcia NP HPI narrative: Patient is a 63-year-old female with history of DM, hypothyroidism, GERD, anxiety presenting to the emergency department with complaint of pruritic rash to bilateral lower legs for the past 3 months. Was seen by PCP and prescribed a topical cream which she has been using without relief. Denies worsening of symptoms, states they have remained the same. Denies fevers, discharge or drainage. Has used Benadryl at times with little relief. MD complaint: leg redness and itching Onset (ago): month(s) Location: lower extremity Quality: other (Pruritic) Associated symptoms: denies other symptoms Treatments prior to arrival: other Related Data Home Medications ?Medication ?Instructions ?Recorded ?Confirmed amitriptyline 100 mg tablet 1 tab PO BEDTIME 01/27/21 01/27/21 bisacodyl 5 mg tablet,delayed PO 01/27/21 01/27/21 release levothyroxine 88 mcg tablet 1 tab PO QAM 01/27/21 01/27/21 metformin 500 mg tablet 1 tab PO BID 01/27/21 01/27/21 omeprazole 20 mg capsule,delayed 1 cap PO DAILY 01/27/21 01/27/21 release polyethylene glycol 3350 17 PO DIRECTED 01/27/21 gram/dose oral powder Previous Rx's ?Medication ?Instructions ?Recorded benzonatate 200 mg capsule 200 mg PO BID PRN cough #14 caps 12/02/22 doxycycline hyclate 100 mg capsule 100 mg PO BID 7 days #14 caps 12/02/22 prednisone 20 mg tablet 60 mg (3 x 20 mg) PO DAILY 5 days 12/02/22 #15 tabs Allergies Allergy/AdvReac Type Severity Reaction Status Date / Time cimetidine [Tagamet] Allergy Intermediate Swelling,li Verified 01/09/24 11:37 ps PMFSH Past Medical History Medical History (Updated 01/09/24 @ 14:44 by Ling Garcia NP) Back pain Anxiety GERD (gastroesophageal reflux disease) Hypothyroidism Diabetes Surgical History Hx of hysterectomy Hx of colonoscopy Social History Social History (Updated 01/27/21 @ 12:15 by Tiffanie Souza RN) Alcohol intake: never Patient Tobacco Use Status: Never used Tobacco Advance Directives: No Do you have a plan to hurt others: No Plan Physical Exam ED Vital Signs: Vital Signs - 24 hr 01/09/24 11:35 Temperature 97.4 F Pulse Rate 89 Respiratory Rate 18 Blood Pressure 149/75 H Pulse Oximetry 98 Oxygen Delivery Method Room Air BMI result Body Mass Index 33.3 Course Course Course Narrative: RME performed by Sinai Dowell PA-C. Patient is a 63 year old assigned female at presenting to the emergency department with a bilateral leg rash for 3 months. Patient states that her PCP gave her a cream but it didn't help. Patient describes the rash as itchy. Rash appears to be venous stasis dermatitis. Detailed physical exam and review of systems are deferred to the journeyman millwright. Labs ordered. Patient placed back in the waiting room pending room availability and results. Medical Decision Making Medical Decision Making [facility] Narrative: Patient is a 63-year-old female with history of DM, hypothyroidism, GERD, anxiety presenting to the emergency department with complaint of pruritic rash to bilateral lower legs for the past 3 months. On exam patient is awake, A+Ox3, VS WNL, afebrile, normal neurological exam without focal deficits, physical exam findings as above. Given reported symptoms and physical exam findings, initial differential includes venous stasis dermatitis, contact dermatitis, atopic dermatitis. Unlikely cellulitis. Labs notable for no leukocytosis, elevated CRP similar to prior, ESR normal. Discussed with patient that symptoms are most consistent with venous stasis dermatitis. She states she has used compression stockings in the past but not recently for current symptoms. Advised patient she should begin using compression stockings again, also keep legs elevated while at rest and continue to use cream prescribed by her PCP. Will refer patient to Dr. Estrella for further evaluation of symptoms. Return precautions discussed. Patient verbalized understanding of and agreement with plan. Differential Diagnosis Differential Diagnoses: The differential diagnosis associated with the presentation includes As per MDM. Lab Data [facility] Lab Attestation statement: I reviewed the patient's lab results. As per [facility]. 01/09/24 11:48 01/09/24 11:48 Labs: Lab Results 01/09/24 Range/Units 11:48 WBC 7.5 (4.8-10.8) X10*3/uL RBC 4.08 L (4.20-5.50) X10*6/uL Hgb 12.0 (12.0-16.0) g/dl Hct 36.3 L (37.0-47.0) % MCV 89.0 (80.0-98.0) fL MCH 29.4 (27.0-33.0) pg MCHC 33.1 (31.0-35.0) g/dl RDW 12.7 (11.0-16.0) % Plt Count 232 (160-400) X10*3/uL MPV 10.8 (9.4-12.3) fL Immature Gran % (Auto) 0.4 (0.0-0.4) % Neut % (Auto) 63.4 (45-73) % Lymph % (Auto) 25.9 (20-40) % [place] % (Auto) 7.2 (2-11) % Eos % (Auto) 2.8 (0-4) % Baso % (Auto) 0.3 (0-2) % Lymph # (Auto) 2.0 (1.2-4.9) X10*3/uL [place] # (Auto) 0.5 (0.1-1.2) X10*3/uL Eos # (Auto) 0.2 (0.0-0.4) X10*3/uL Baso # (Auto) 0.0 (0.0-0.2) X10*3/uL Abs Immat Gran (auto) 0.03 (0.00-0.03) X10*3/uL Absolute Neuts (auto) 4.8 (2.0-8.3) x10*3/uL Absolute Nucleated RBC 0.000 (0.0-0.012) X10*3/uL Nucleated RBC % (auto) 0.0 (0.0-0.2) /100WBC ESR 21 H (0-20) MM/HR Sodium 140 (135-145) mmol/L Potassium 4.4 (3.3-5.1) mmol/L Chloride 106 (96-108) mmol/L Carbon Dioxide 26 (22-29) mmol/L Anion Gap 12 (12-20) BUN 10 (9-16) mg/dL Creatinine 0.75 (0.5-1.4) mg/dL Estim Creat Clear Calc 72.4 Estimated GFR > 60 Random Glucose 145 H (60-115) mg/dL Calcium 9.4 (8.4-10.2) mg/dL Total Bilirubin 0.4 (0.0-1.0) mg/dL AST 50 H (5-31) U/L ALT 35 H (0-31) U/L Alkaline Phosphatase 96 (39-117) U/L C-Reactive Protein 1.97 H (< or = 0.50) mg/dL Total Protein 7.8 (6.5-8.0) g/dL Albumin 4.2 (3.5-5.0) g/dL External Record Review External record reviewed: Inpatient record, Office record and Outpatient record Discharge Plan Discharge Clinical Impression: Chronic venous stasis dermatitis Patient Disposition: Home, Self-Care Instructions: Peripheral Vascular Disease (ED) Additional Instructions: You were evaluated in the emergency department today for lower leg redness and itching. Your symptoms are consistent with venous stasis dermatitis. We recommend that you continue using the cream prescribed by your primary care provider as well as begin using compression stockings. Keep your legs elevated when at rest. You are being referred to the vascular surgeon, Dr. Estrella, for further evaluation of your symptoms. Please call the office to schedule an appointment. Return to the emergency department if you develop increasing redness, warmth, drainage, fevers 100.4? F or greater or any other concerning symptoms. Prescriptions: No Action metformin 500 mg tablet 1 tab PO BID levothyroxine 88 mcg tablet 1 tab PO QAM omeprazole 20 mg capsule,delayed release(DR/EC) 1 cap PO DAILY bisacodyl 5 mg tablet,delayed release (DR/EC) PO polyethylene glycol 3350 17 gram/dose powder PO DIRECTED amitriptyline 100 mg tablet 1 tab PO BEDTIME doxycycline hyclate 100 mg capsule 100 mg PO BID 7 Days Qty: 14 0RF benzonatate 200 mg capsule 200 mg PO BID PRN (Reason: cough) Qty: 14 0RF prednisone 20 mg tablet 60 mg PO DAILY 5 Days Qty: 15 0RF Referrals: Bryon Estrella MD [Physician] - Print Language: Nepali
[2024-01-09 11:53] LABS: MANUAL DIFF FLAG NO
[2024-01-09 12:00] LABS: Basophils Percent Auto 0.3 % (0-2); Eosinophils Absolute Auto 0.2 X10*3/uL (0.0-0.4); Eosinophils Percent Auto 2.8 % (0-4); Hematocrit 36.3 % (37.0-47.0); Imm Gran Abs Auto 0.03 X10*3/uL (0.00-0.03); Imm Gran Pct Auto 0.4 % (0.0-0.4); Lymphocytes Percent Auto 25.9 % (20-40); Mean Corpuscular HGB Conc 33.1 g/dl (31.0-35.0); Mean Corpuscular Hemoglobin 29.4 pg (27.0-33.0); Mean Platelet Volume 10.8 fL (9.4-12.3); Monocytes Absolute Auto 0.5 X10*3/uL (0.1-1.2); Monocytes Percent Auto 7.2 % (2-11); Neutrophils Absolute Auto 4.8 x10*3/uL (2.0-8.3); Neutrophils Percent Auto 63.4 % (45-73); Platelet Count 232 X10*3/uL (160-400); Red Blood Count 4.08 X10*6/uL (4.20-5.50); Red Cell Distribution Width 12.7 % (11.0-16.0); White Blood Count 7.5 X10*3/uL (4.8-10.8)
[2024-01-09 12:11] LABS: Alanine Aminotransferase 35 U/L (0-31); Albumin Level 4.2 g/dL (3.5-5.0); Alkaline Phosphatase 96 U/L (39-117); Anion Gap 12 (12-20); Aspartate Amino Transferase 50 U/L (5-31); Bilirubin Total 0.4 mg/dL (0.0-1.0); Blood Urea Nitrogen 10 mg/dL (9-16); C Reactive Protein 1.97 mg/dL (< or = 0.50); Calcium 9.4 mg/dL (8.4-10.2); Carbon Dioxide 26 mmol/L (22-29); Chloride 106 mmol/L (96-108); Creatinine Clr Calc Pharmacy 72.4; Estimated Glomerular Filt Rate > 60; Glucose Random 145 mg/dL (60-115); Potassium 4.4 mmol/L (3.3-5.1); Sodium 140 mmol/L (135-145); Total Protein 7.8 g/dL (6.5-8.0)
[2024-01-09 12:44] LABS: Erythrocyte Sedimentation Rate 21 MM/HR (0-20)
[2024-01-09 14:50] VITALS: BP 135/77; PULSE 81; RESP 18; TEMP 37.2; O2SAT 95
== END 2024-01-09 14:51 | disposition home or self-care (01) ==
PROVIDERS: Physician Assistant Medical; Emergency Provider Emergency Medicine; PCP Internal Medicine
DX: I87.2 Venous insufficiency (chronic) (peripheral) (principal); R21 Rash and other nonspecific skin eruption; E11.8 Type 2 diabetes mellitus with unspecified complications; E03.9 Hypothyroidism, unspecified
CPT/HCPCS: 36415; 80053; 85025; 85652; 86140; 99283; 99284

== ENCOUNTER 2025-01-27 16:59 | Outpatient (REF) | payer MEDICAID, SELFPAY ==
[2025-01-28 02:55] LABS: CT PCR NOT DETECTED (Not Detect.); NG PCR NOT DETECTED (Not Detect.)
[2025-01-28 11:30] LABS: Bacterial Vaginosis PCR NEGATIVE (Negative); Candida Group PCR DETECTED (Not Detect); Candida glab krusei PCR NOT DETECTED (Not Detect); Trichomonas vaginalis PCR NOT DETECTED (Not Detect)
== END 2025-01-27 17:00 | disposition home or self-care (01) ==
LOC: HO.HHCLNP 16:59
PROVIDERS: Visit Provider Nurse Practitioner Primary Care
DX: N89.8 Other specified noninflammatory disorders of vagina (principal)
CPT/HCPCS: 81515; 87491; 87591

== ENCOUNTER 2025-04-07 10:24 | Outpatient (REF) | payer MEDICAID, SELFPAY ==
--- OUTSIDE RECORDS SUMMARY | 2025-04-07 11:33 | XMS_ITS | Patient Health Record ---
Author Organization [facility] Address [address] [place] [address] Care Team Providers Care Command Center Officer Name Role Phone Anupama (RETIRED) Kyle REARDON Primary Care Provide r Francisco Cullen Unavailable [phone] Allergies Allergen (clinical drug ingredient) Drug/Non Drug Allergy documented on EMR Reaction Allergy Type Onset Date Status cimetidine Tagamet HB Unknown Drug Allergy Activ e Reason For Referral No Information Medications Medication SIG (Take, Route, Frequency, Duration) Notes Start Date End Date Status ProAir HFA 108 (90 Base) MCG/ACT INHALE 2 PUFFS BY MOUTH FOUR TIMES DAILY NEEDED Inhalation for 25 Active Flovent HFA 110 MCG/ACT INHALE 1 PUFF BY MOUTH TWICE DAILY. RINSE MOUTH AFTER USING. Inhalation for 30 Active metFORMIN HCl 500 MG TAKE 1 TABLET BY MO UT TWICE DAILY Oral for 30 Active Omeprazole 20 MG 1 capsule 30 minutes before morning meal Orally Once a day for 30 day(s) Active MiraLax (colon prep) 8.3 ounce ((238) grams mixed with Gatorade or Crystal Light orally begin at 5:00 p.m. the day before the procedure for 1 day 01/12/2021 Active Dulcolax (colon prep) 5 MG take at 3:00 p.m and 7:00p.m. Orally two tablets twice a day for one day for 1 day 01/12/2021 Active Levothyroxine Sodium 88 MCG TAKE 1 TABLE T BY MOUTH EVERY MORNING ON AN EMPTY STOMACH Oral for 30 Active Amitriptyline HCl 100 MG TAKE 1 TABLET B Y MOUTH AT BEDTIME Oral for 30 Active Immunizations Vaccine Route Administration Date Status Comme nts Influenza Unknown 01/12/2021 Refused Social History Tobacco Use: Social History Observation Description Date Details (start date - stop date) Never Smoker NA - NA Tobacco Use/Smoking Question Answer Notes Patient is a nonsmoker Alcohol Screen Question Answer Notes Did you have a drink containing alcohol in the p ast year? No Points 0 Interpretation Negative Section Notes: Nonsmoker; no sig alcohol Problems Problem Type SNOMED Code ICD Code Onset Dates Problem Status W/U Status Risk Notes Problem Esophageal reflux (477906676) Esophageal reflux (K21.9) Active confirmed Problem 982140773 Encounter for screening for malignant neoplasm of colon (Z12.11) Active confirmed Problem 996544554 Family history o f colon cancer (Z80.0) Active confirmed Problem Diverticulosis of sigmoid colon (670164734) Diverticulosis of sigmoid colon (K57.30) Active confirmed Problem 875225686 Gastroesophageal reflux disease, unspecified whether esophagitis present (K21.9) Active confirmed Plan Of Treatment Pending Test Test Name Order Date Pathology 02/03/2021 Future Test Test Name Order Date UPPER GI ENDOSCOPY 01/12/2021 COLONOSCOPY 01/12/2021 Insurance Providers Payer Name Payer Address Payer Phone Subscriber Number Group Number Insured Name Patient Relationship to Insured Coverage Start Date Coverage End Date [facility] [address] [address] [place], [place] [phone] [id number] MELISSA MCKINNEY Self - patient is the insured MEDICAID OF [facility] [address] [place] [address] [id number] MELISSA MCKINNEY Self - patient is the insured Medical (General) History Medical History History ICD Code diabetes mellitus asthma kidney stones GERD Neg colonoscopy age 48 Denies UT,CVA,renal disease Migraines Anxiety Surgical History Surgery Date(Month/Year) Hysterectomy 2008
== END 2025-04-07 10:25 | disposition home or self-care (01) ==
LOC: HO.MAMMO 10:24
PROVIDERS: PCP Student in an Organized Health Care Education/Training Program; Visit Provider Nurse Practitioner Primary Care
DX: Z12.31 Encounter for screening mammogram for malignant neoplasm of breast (principal)
CPT/HCPCS: 77063; 77067

== ENCOUNTER → 2025-04-07 10:45 | Outpatient (BNV) | payer MEDICAID, SELFPAY | PROVIDERS: PCP Student in an Organized Health Care Education/Training Program; Visit Provider Radiology Body Imaging | DX: Z12.31 Encounter for screening mammogram for malignant neoplasm of breast (principal) | CPT/HCPCS: 77063; 77067 ==

== ENCOUNTER 2025-04-17 10:21 | Outpatient (REF) | payer MEDICAID, SELFPAY ==
--- OUTSIDE RECORDS SUMMARY | 2025-04-17 11:41 | XMS_ITS | Patient Health Record ---
Author Organization [facility] Address [address] [place] [address] Care Team Providers Care Diesel Instructor Name Role Phone Anupama (RETIRED) Kyle REARDON Primary Care Provide r Francisco Cullen Unavailable [phone] Allergies Allergen (clinical drug ingredient) Drug/Non Drug [...] W/U Status Risk Notes Problem Esophageal reflux (337237582) Esophageal reflux (K21.9) Active confirmed Problem 478513214 Encounter for screening for malignant neoplasm of colon (Z12.11) Active confirmed Problem 772528527 Family history o f colon cancer (Z80.0) Active confirmed Problem Diverticulosis of sigmoid colon (186404847) Diverticulosis of sigmoid colon (K57.30) Active confirmed Problem 332724029 Gastroesophageal reflux disease, unspecified whether esophagitis present (K21.9) Active confirmed Plan Of Treatment Pending Test Test Name Order Date Pathology 02/03/2021 Future Test Test Name Order Date UPPER GI ENDOSCOPY 01/12/2021 COLONOSCOPY 01/12/2021 Insurance Providers Payer Name Payer Address Payer Phone Subscriber Number Group Number Insured Name Patient Relationship to Insured Coverage Start Date Coverage End Date [facility] [address] [address] [place], [place] [phone] [id number] MELISSA MCKINNEY Self - patient is the insured MEDICAID OF [facility] [address] [place] [address] [id number] MELISSA MCKINNEY Self - patient is the insured Medical (General) History Medical History History ICD Code diabetes mellitus asthma kidney stones GERD Neg colonoscopy age 48 Denies [place],CVA,renal disease Migraines Anxiety Surgical History Surgery Date(Month/Year) Hysterectomy 2008
--- OUTSIDE RECORDS SUMMARY | 2025-04-17 11:41 | XMS_ITS | Clinical Summary ---
Author Organization [employer] Address [address] [facility] 7t [place] [address] Care Team Providers Care Bottom Worker Name Role Phone Unavailable Primary Care Provider Unavailabl e Allergies Active Allergy Reactions Criticality Noted Date Comments Thymidine 01/27/2025 Medications * This document contains information received from the source organization and may not represent a complete record from that organization. glipiZIDE XL (Glucotrol XL) 5 MG 24 hr tablet Take 2 tablets by mouth 2 times daily. 5 Active levothyroxine (Synthroid, Levoxyl) 100 MCG tablet Take 100 mcg by mouth in the morning. Take on an empty stomach. 5 Active montelukast (Singulair) 10 MG tablet Take 1 tablet by mouth Once per day. 5 Active omeprazole (PriLOSEC) [address] capsule Take 20 mg by mouth Once per day. Active amitriptyline (Elavil) 100 MG tabletIndications :Migraine without status migrainosus, not intractable, unspecified migraine type Take 1 tablet (100 mg) by mouth at bedtime. 90 tablet 5 01/28/20 26 Active albuterol 108 (90 Base) MCG/ACT inhalerIndication s:Mild intermittent asthma without complication Inhale 2 puffs every 6 (six) hours if needed for shortness of breath or wheezing. 18 g 1 5 01/28/20 26 Active fluconazole (Diflucan) 150 MG tabletIndications :Vaginal itching Take 1 tab now and repeat again in 3 days. 2 tablet 5 Active clotrimazole (Lotrimin) 1 % creamIndications: Groin rash Apply twice daily to affected area for 14d 30 g 1 5 Active FREESTYLE LITE test stripIndications: Type 2 diabetes mellitus with hyperglycemia, unspecified whether intermediate card tender insulin use (CMS/HCC) Take BG 2-3 times daily 100 each 2 5 Active TRUEplus Lancets 33G miscIndications:T ype 2 diabetes mellitus with hyperglycemia, unspecified whether snf insulin use (CMS/HCC) Take BG 2-3 times daily 100 each 2 5 Active Dulaglutide (Trulicity) 0.75 MG/0.5ML solution auto-injectorIndi cations:Type 2 diabetes mellitus with hyperglycemia, unspecified whether intermediate card tender insulin use ([facility]) Inject 0.75 mg under the skin 1 (one) time per week. 2 mL 5 Active Active Problems Problem Noted Date Diagnosed Date ISSA (generalized anxiety disorder) 03/19/2025 Moderate major depression 03/19/2025 Type 2 diabetes mellitus with hyperglycemia 01/12 Migraine without status migrainosus, not intract able 01/27/2025 Mild intermittent asthma without complication Encounters * This document contains information received from the source organization and may not represent a complete record from that organization. Date Type Department Care Team Description 04/17/[address] [address] Altagracia Jeff MA 04/15/2025 Patient Outreach [address] [address] Nely Coelho MD Pre-visit Planning (Pre-visit planning - LVM ) 03/21/[address] [address] Olya Zimmerman MA notes 03/03/2025 2:15 PM EDT Office Visit [address] [address] Jennifer Price ANP Type 2 diabetes mellitus with hyperglycemia, without long-term current use of insulin (CMS/HCC) (Primary Dx); Depression, unspecified depression type; Type 2 diabetes mellitus with hyperglycemia, unspecified whether intermediate card tender insulin use (CMS/HCC); Need for hepatitis B screening test; Routine screening for STI (sexually transmitted infection) 03/03/2025 Travel 02/28/2025 Telephone [facility] [address] [place] [phone] Isela Edmonds MA Chart Prep 02/18/2025 Population Health Risk Score [facility] ([facility] Department [address] [place] [phone] Provider, Population Health Generic 02/03/2025 Telephone [facility] [address] [place] [phone] Jennifer Price ANP 01/29/2025 Results Follow-Up [address] [address] Jennifer Price ANP POCT urinalysis dipstick manually resulted, Bacterial Vaginosis Panel, Chlamydia/N. Gonorrhoeae RNA, TMA, Urogenitial, Additional followed-up results: 2 01/28/[address] [address] Altagracia Jeff MA Appointment Confirmation 01/28/2025 Travel 01/28/[address] [address] Shaun Ramirez MD New Patient appt. 01/27/2025 3:00 PM EDT Office Visit [facility] [address] [place] [phone] Jennifer Price ANP Type 2 diabetes mellitus with hyperglycemia, unspecified whether snf insulin use ([facility]) (Primary Dx); Vaginal itching; Migraine without status migrainosus, not intractable, unspecified migraine type; Mild intermittent asthma without complication; Groin rash; Elevated blood pressure reading without diagnosis of hypertension; Hypothyroidism, unspecified type; Screening mammogram for breast cancer 01/27/2025 Telephone [facility] [address] [place] [phone] Jennifer Price ANP Appointment Request (Melissa needs a new patient appointment to be scheduled.) 01/27/2025 Travel 01/24/2025 Telephone [facility] [address] [place] [phone] Melyssa Parham MD from Last 3 Months Immunizations Immunization Administration Dates Next Due Influenza Injectable Quadriv alant Preservative Free IIV4 MDCK 08/25/2023 Influenza injectable quadrivalent preservative f ree 05/16/2017 Influenza, IIV3, injectable 08/26/2014 Influenza, Split (incl. purified surface antigen ) 05/15/2013 Pneumococcal Polysaccharide PPSV23 08/26/2014 TD (adult), 2 Lf tetanus tox oid, preservative free, adsorbed 10/29/2007 Tdap 03/03/2025,10/29/2013 Zoster, Recombinant 11/06/2023,08/25/2023 Family History Medical History Relation Name Comments Hypertension Other Relation Name Status Comments Other Social History Tobacco Use Types Packs/Day Years Used Date Smoking Tobacco: Never Smokeless Tobacco: Never Tobacco Cessation:Counseling Given: Not Answered Alcohol Use Standard Drinks/Week Comments Never 0 (1 standard drink = 0.6 oz pur e alcohol) Depression Answer Date Recorded Patient Health Questionnaire-9 Score 14 03/19/2025 Patient Health Questionnaire-9 Score 14 03/19/2025 Last PHQ-9: Questionnaire Data Not on file 0 03/19/2025 Housing Stability Answer Date Recorded What is your housing situation today? I have bibi draper 03/03/[address] you li ve. Do you have problems with any of the following? None of the above 03/03/2025 Food Insecurity Answer Date Recorded Within the past 12 months, y ou worried that your food would run out before you got money to buy more: Never True 03/03/2025 Within the past 12 months,th e food you bought just didn't last and you didn't have enough money to get more: Never True Transportation Answer Date Recorded In the past 12 months, has l ack of transportation kept you from medical appts, meetings, work or from getting things needed for daily living? No 03/03/2025 Utilities Answer Date Recorded In the past 12 months, has t he electric, gas, oil or water company threatened to shut off services in your home? No 03/03/2025 Depression Answer Date Recorded Patient Health Questionnaire-2 Score 3 03/19/2025 Internet Access Answer Date Recorded Internet Access Q1 Yes 03/03/2025 Internet Access Q2 Not on file 03/03/2025 Comments Unknown Sex and Gender Information Value Date Recorded Sex Assigned at Female 06/13/2022 10:19 AM EDT Legal Sex Female 10:19 AM EDT Gender Identity Choose not to disclose 4 1:58 PM EST Sexual Orientation Choose not to disclose 2023 2:01 PM EST Last Filed Vital Signs Vital Sign Reading Time Taken Comments Blood Pressure 138/78 03/03/2025 2:18 PM EDT Pulse 85 03/03/2025 2:18 PM EDT Temperature 36.7 C (98.1 F) 01/27/2025 3:14 PM EDT Respiratory Rate 20 03/03/2025 2:18 PM EDT Oxygen Saturation 96% 01/27/2025 3:14 PM EDT Inhaled Oxygen Concentration - - Weight 75.3 kg (166 lb) 03/03/2025 2:18 PM EDT Height - - Body Mass Index - - Plan of Treatment Upcoming Encounters Date Type Department Care Team (Late st Contact Info) Description 04/23/2025 9:15 AM EDT Office Visit [facility] [address] [place] [address] Nely Coelho MD [address] [place] [address] Health Maintenance Due Date Last Done Comments CT Colonography 1962 Colonoscopy 1962 Colorectal Cancer Screening 1960 FIT DNA/Cologuard 1962 FIT 1962 FOBT 1960 HIV Screening 1960 Lipid Panel 1960 Sigmoidoscopy 1962 Diabetes: Foot Exam 1972 Eye Exam 1972 Hepatitis C Screening 1980 Diabetes: Urine Protein Screening 1981 Pneumococcal Vaccine: 50+ Years (2 of 2 - PCV) 08/26/2015 08/26/2014 RSV Patients and Patients Aged 60 years or older (1 - Risk 60-74 years 1-dose series) 2022 COVID-19 Vaccine ( season) 2025 01/13/2021, 12/16/2020 Influenza Vaccine (#1) 2025 4, 05/16/2017, 08/26/2014, Additional history exists Diabetes: Hemoglobin A1C 04/29/2025 01/27/2025 Depression Monitoring 09/19/2025 03/19/2025, 025 Alcohol/Substance Use Screening 03/03/2026 03/03/2025 Disability Screening 03/03/2026 03/03/2025 SDOH Screening 03/03/2026 03/03/2025 Tobacco Screening 03/21/2026 03/21/2025 Mammogram 04/17/2027 04/17/2025, 04/07/2025 DTaP/Tdap/Td Vaccines (3 - Td or Tdap) 03/03/2035 03/03/2025, 10/29/2013, 10/29/2007 Zoster Vaccines Completed 11/06/2023, 08/25/2023 HIB Vaccines Aged Out No longer eligi ble based on patient's age to complete this topic HPV Vaccines Aged Out No longer eligi ble based on patient's age to complete this topic Hepatitis A Vaccines Aged Out No long er eligible based on patient's age to complete this topic Hepatitis B Vaccines Aged Out No long er eligible based on patient's age to complete this topic IPV Vaccines Aged Out No longer eligi ble based on patient's age to complete this topic Meningococcal B Vaccine Aged Out No l onger eligible based on patient's age to complete this topic Meningococcal Vaccine Aged Out No david flavia eligible based on patient's age to complete this topic RSV under 20 months Aged Out No longe r eligible based on patient's age to complete this topic Rotavirus Vaccines Aged Out No longer eligible based on patient's age to complete this topic Procedures Procedure Name Priority Date/Time Associated Diagnosis Comments HM MAMMOGRAPHY Routine 04/17/2025 9:54 AM EDT BI MAMMOGRAM SCREENING TOMOSYNTHESIS BILATERAL Routine 04/07/2025 10:30 AM EDT POCT GLUCOSE Routine 01/27/2025 4:08 PM EDT Type 2 diabetes mellitus with hyperglycemia, unspecified whether intermediate card tender insulin use ([facility]) POCT GLYCATED HEMOGLOBIN, TOTAL Routine 01/27/2025 4:07 PM EDT Type 2 diabetes mellitus with hyperglycemia, unspecified whether snf insulin use ([facility]) POCT URINALYSIS DIPSTICK Routine 01/27/2025 4:06 PM EDT Vaginal itching CHLAMYDIA/N. GONORRHOEAE RNA, TMA, UROGENITAL Routine 01/27/2025 3:32 PM EDT Vaginal itching BACTERIAL VAGINOSIS PANEL Routine 01/27/2025 3:32 PM EDT Vaginal itching from Last 3 Months Results * Mammography (04/17/2025 9:54 AM EDT) Mammogram BIRADS 1 Normal, Abnormal, BIRADS 1 , BIRADS 2 Comment:follow up 1 year Anatomical Region Laterality Modality Other Historical Provider [facility] Final Result * BI Mammogram Screening Tomosynthesis Bilateral (04/07/2025 10:30 AM EDT) Anatomical Region Laterality Modality Breast Bilateral Mammography 04/07/2025 10:3 0 AM EDT Narrative 04/11/2025 5:45 PM EDT [facility] [address] [place] [address] Mammography Report Signed Patient: Melissa Linares MR#: [id number] : 1960 Acct:[id number] Age/Sex: 64 / F ADM Date: 04/07/25 Loc: HO.MAMMO Attending Dr: Jennifer Price NP Ordering Physician: JENNIFER PRICE NP Results: 1Negative Date of Service: 04/07/25 Follow Up: 1 Year From Orig inal Mammogram Procedure(s): MM tomosynthesis screening BI Accession Number(s): [id number] cc: Nely Coelho MD; JENNIFER PRICE NP EXAMINATION: MM SCREENING DIGITAL BREAST TOMOSYNTHESIS, BILATERAL CLINICAL INFORMATION: Screening. Asymptomatic. COMPARISON: Comparison made to multiple prior, most recent January 27, 2021, and most remote May 08, 2014. TECHNIQUE: Digital breast tomosynthesis is performed in both the craniocaudal and mediolateral oblique views along with computer-aided detection (CAD). FINDINGS: BREAST COMPOSITION: The breasts are heterogeneously dense, which may obscure small masses (ACR BI-RADS breast composition Category c). BILATERAL BREASTS: No significant masses, suspicious calcifications or other abnormalities are seen in either breast. MM/MM tomosynthesis screening BI IMPRESSION: BILATERAL BREASTS: Negative, no mammographic evidence of malignancy. Normal interval follow-up is recommended in 12 months. ASSESSMENT: BI-RADS 1 - Negative RECOMMENDATION: Routine annual mammography screening. FOLLOW-UP: 1 year F/U This examination should not preclude the clinical evaluation of a suspicious palpable abnormality. This patient's information was entered into a reminder system with a target due date for their next mammogram. Electronically signed by: Ada Adames MD 04/11/2025 05:41 PM EDT RP Workstation: [employer] Dictated By: Ada Adames MD Signed By: <Electronically signed by Ada Adames MD in OV> 04/11/25 1741 DD/ 1030 TD/TT: 04/07/25 1040 Trench Digger Helper: Procedure Note Donotuseinterpreter, Image - 04/11/2025 [facility] [address] [place], [place] [address] Mammography Report Signed Patient: Melissa Linares#: [id number] : 1960Acct:[id number] Age/Sex: 64 / FADM Date: 04/07/25 Loc: HO.MAMMO Attending Dr: Jennifer Price NP Ordering Physician: JENNIFER PRICE NPResults: 1Negative Date of Service: 04/07/25Follow Up: 1 Year From Orig inal Mammogram Procedure(s): MM tomosynthesis screening BI Accession Number(s): [id number] cc: Nely Coelho MD; JENNIFER PRICE NP EXAMINATION: MM SCREENING DIGITAL BREAST TOMOSYNTHESIS, BILATERAL CLINICAL INFORMATION: Screening. Asymptomatic. COMPARISON: Comparison made to multiple prior, most recent January 27, 2021, and most remote May 08, 2014. TECHNIQUE: Digital breast tomosynthesis is performed in both the craniocaudal and mediolateral oblique views along with computer-aided detection (CAD). FINDINGS: BREAST COMPOSITION: The breasts are heterogeneously dense, which may obscure small masses (ACR BI-RADS breast composition Category c). BILATERAL BREASTS: No significant masses, suspicious calcifications or other abnormalities are seen in either breast. MM/MM tomosynthesis screening BI IMPRESSION: BILATERAL BREASTS: Negative, no mammographic evidence of malignancy. Normal interval follow-up is recommended in 12 months. ASSESSMENT: BI-RADS 1 - Negative RECOMMENDATION: Routine annual mammography screening. FOLLOW-UP: 1 year F/U This examination should not preclude the clinical evaluation of a suspicious palpable abnormality. This patient's information was entered into a reminder system with a target due date for their next mammogram. Electronically signed by: Ada Adames MD 04/11/2025 05:41 PM EDT Workstation: [employer] Dictated By: Ada Adames MD Signed By: <Electronically signed by Ada Adames MD in OV> 04/11/25 1741 DD/ 1030 TD/TT: 04/07/25 1040 Trench Digger Helper: us Jennifer VARELA IMG BI PROCEDURES Final Result * (ABNORMAL) POCT glucose manually resulted (01/27/2025 4:08 PM EDT) Glucose Blood, POC 233(A) 60 - 200 mg/dL Blood Capillary blood specimen / Unknown 01/27/2025 4:08 PM EDT us Jennifer VARELA POINT OF CARE TEST ENTER/EDIT OR DERABLES Final Result * (ABNORMAL) POCT HGB A1C (01/27/2025 4:07 PM EDT) Hemoglobin A1C 9.8(A) 4.0 - 6.0 % Blood 01/27/2025 4:07 PM EDT us Jennifer VARELA POINT OF CARE TEST ENTER/EDIT OR DERABLES Final Result * POCT urinalysis dipstick manually resulted (01/27/2025 4:06 PM EDT) Color, UA Yellow Clarity, UA Clear Glucose, UA Few 15 Comment:500 mg/dL Bilirubin, UA Negative Ketones, UA Negative Spec Grav, UA 1.010 Blood, UA Negative Negative, None Detected pH, UA 5.5 Protein, UA Negative Urobilinogen, UA 0.2 Leukocytes, UA Negative Negative, Rare, Trace Nitrite, UA Negative Negative, None Detected Urine 01/27/2025 4:06 PM EDT Jennifer VARELA POINT OF CARE TEST ENTER/EDIT OR DERABLES Final Result * (ABNORMAL) Bacterial Vaginosis Panel (01/27/2025 3:32 PM EDT) TRICHOMONAS VAGINALIS DETECTION BY PCR NOT DETECTED Not Detect [facility] BACTERIAL VAGINOSIS DETECTION BY PCR NEGATIVE Negative [facility] Comment:The BV organism targ ets of the Xpert Xpress MVP test can becommensal in women; Xpert Xpress MVP positive results forbacterial vaginosis should be considered in conjunction withother clinical and patient information to determine thedisease status. Organisms that are not detected by the XpertXpress MVP test have also been reported to be associatedwith BV and aerobic vaginitis.The Xpert Xpress MVP test performance has not been evaluatedin patients under the age of 14. NEVIN GROUP DETECTION BY PCR DETECTED(A) Not Detect [facility] Nevin glab krusei PCR NOT DETECTED Not Detect [facility] Swab Vaginal structure / Unknown 01/27/2025 3:32 PM EDT 01/27/2025 5:00 PM EDT Jennifer VARELA LAB MICROBIOLOGY - GENERAL ORDER ANNE Final Result [facility] [address] [place] [phone] * Chlamydia/N. Gonorrhoeae RNA, TMA, Urogenitial (01/27/2025 3:32 PM EDT) CT PCR NOT DETECTED Not Detect. [facility] Comment:A not detected test result does not exclude the possibilityof infection because test results can be affected byimproper specimen collection, concurrent antibiotic therapy,or the number of organisms in the specimen which may bebelow the sensitivity of the test. As with many diagnostictests, results from the Xpert CT/NG assay should beinterpreted in conjunction with other laboratory andclinical data available to the clinician.Xpert CT/NG performance has not been evaluated in patientsless than 14 years of age. The assay should not be used forthe evaluationof suspected sexual abuse or for other medico-legalindications. Additional testing is recommended in anycircumstance when false positive or false negative resultscould lead to adverse medical, social or psychologicalconsequences. NG PCR NOT DETECTED Not Detect. [facility] Comment:A not detected test result does not exclude the possibilityof infection because test results can be affected byimproper specimen collection, concurrent antibiotic therapy,or the number of organisms in the specimen which may bebelow the sensitivity of the test. As with many diagnostictests, results from the Xpert CT/NG assay should beinterpreted in conjunction with other laboratory andclinical data available to the clinician.Xpert CT/NG performance has not been evaluated in patientsless than 14 years of age. The assay should not be used forthe evaluationof suspected sexual abuse or for other medico-legalindications. Additional testing is recommended in anycircumstance when false positive or false negative resultscould lead to adverse medical, social or psychologicalconsequences. Swab (Vaginal Swab) 01/27/2025 3:32 PM EDT 01/27/2025 5:00 PM EDT Narrative [facility] - 01/28/2025 2:55 AM EDT Vaginal Jennifer VARELA LAB MICROBIOLOGY - GENERAL ORDER ANNE Final Result [facility] [address] [place] [address] [phone] from Last 3 Months Insurance [facility] C[facility]
--- OUTSIDE RECORDS SUMMARY | 2025-04-17 11:41 | XMS_ITS | Encounter Summary ---
Author Organization [employer] Address [address] [facility] 7 [place] [address] Care Team Providers Care Generation Technologist Name Role Phone Unavailable Primary Care Provider Unavailabl e Reason for Visit * Reason Comments Pre-visit Planning Pre-visit planning - LVM Encounter Details Date Type Department Care Team ([facility] st Contact Info) Description 04/15/2025 Patient Outreach [facility] [address] [place] [address] Nely Coelho MD [address] [place] [address] Pre-visit Planning (Pre-visit planning - LVM ) Social History Tobacco Use Types Packs/Day Years Used Date Smoking Tobacco: Never Smokeless Tobacco: Never Alcohol Use Standard Drinks/Week Comments Never 0 [...] EDT Gender Identity Choose not to disclose 1:58 PM EST Sexual Orientation Choose not to disclose 2023 2:01 PM EST documented as of this encounter Progress Notes * Altagracia Kulkarni - 04/15/2025 3:04 PM EDT MARIANA Crump placed outbound call to patient to complete pre-visit planning. No answer at this time. Patient name and were not confirmed. CC left voicemail requesting return call. Direct contact information provided. documented in this encounter Plan of Treatment Upcoming Encounters Date Type Department Care Team (Late st Contact Info) Description 04/23/2025 9:15 AM EDT Office Visit [facility] [address] [place] [phone] Nely Coelho MD [address] [place] [address] documented as of this encounter Visit Diagnoses Not on filedocumented in this encounter Additional Health Concerns Assessment Noted Time PHQ-9 Depression Total Score: 14 025 9:20 AM EDT documented as of this encounter
--- OUTSIDE RECORDS SUMMARY | 2025-04-17 11:41 | XMS_ITS | Encounter Summary ---
Author Organization [employer] Address [address] [facility] 7t [place] [address] Care Team Providers Care Chocolate Packer Name Role Phone Unavailable Primary Care Provider Unavailabl e Encounter Details Date Type Department Care Team (Late st Contact Info) Description 04/17/2025 Abstract [facility] [address] [place] [address] Altagracia Jeff MA Social History Tobacco Use Types Packs/Day Years [...] PM EST documented as of this encounter Plan of Treatment Upcoming Encounters Date Type Department Care Team (Late st Contact Info) Description 04/23/2025 9:15 AM EDT Office Visit [facility] [address] [place] [phone] Nely Coelho MD [address] [place], [place] [phone] documented as of this encounter Procedures Procedure Name Priority Date/Time Associated Diagnosis Comments MAMMOGRAPHY Routine 04/17/2025 9:54 AM EDT documented in this encounter Results * Mammography (04/17/2025 9:54 AM EDT) Mammogram BIRADS 1 Normal, Abnormal, BIRADS 1 , BIRADS 2 Comment:follow up 1 year Anatomical Region Laterality Modality Other Historical Provider [facility] [employer] Final Result documented in this encounter Visit Diagnoses Not on filedocumented in this encounter Additional Health Concerns Assessment Noted Time PHQ-9 Depression Total Score: 14 025 9:20 AM EDT documented as of this encounter
[2025-04-18 04:23] LABS: HBS Num1 0.41 mIU/mL (0-7.99); HBc Num1 0.10 S/CO (0.00-0.79); HBsAGNum1 0.41 S/CO (0.00-0.99); HIV Num 1 0.05 S/CO (0.00-0.99); Hepatitis B Surface Antigen Negative (Negative); ~HepC Num1 0.21 S/CO (0.00-0.79); ~Hepatitis B Surface Antibody NONREACTIVE (Nonreactive); ~Hepatitis C Antibody Nonreactive (Nonreactive)
== END 2025-04-17 10:22 | disposition home or self-care (01) ==
LOC: HO.HHCL 10:21
PROVIDERS: PCP Student in an Organized Health Care Education/Training Program; Visit Provider Nurse Practitioner Primary Care
DX: Z11.3 Encounter for screening for infections with a predominantly sexual mode of transmission (principal); Z11.59 Encounter for screening for other viral diseases; Z11.4 Encounter for screening for human immunodeficiency virus [HIV]
CPT/HCPCS: 36415; 86704; 86706; 86803; 87340; 87389